=== PATIENT | male | born 1985 | race Caucasian/White ===

== ENCOUNTER 2024-04-23 16:14 | Emergency (ER) | payer BC ==
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
[2024-04-23 16:28] VITALS: TEMP 96.6
[2024-04-23 16:36] LABS: Absolute Neutrophil Ct (ANC) 3.88 x10^3/uL (1.78-5.38); BASOPHIL % 0.4 % (0.2-1.2); Basophil (Absolute #) 0.04 x10^3/uL (0.01-0.08); Eosinophil % 1.7 % (0.8-7.0); Eosinophil (Absolute #) 0.17 x10^3/uL (0.04-0.54); Hematocrit 41.1 % (40.1-51.0); Hemoglobin 13.8 g/dL (13.7-17.5); IMMATURE GRAN # 0.08 x10^3u/L (0.001-0.031); IMMATURE GRAN % 0.8 % (0.001-0.429); Lymphocyte (Absolute #) 4.93 x10^3/uL (1.32-3.57); Lymphocytes % 49.7 % (21.8-53.1); Mean Cell Volume 89.5 fL (79.0-92.2); Mean Corpuscular Hemoglobin 30.1 pg (25.7-32.2); Mean Corpuscular Hgb Concent. 33.6 g/dL (32.3-36.5); Mean Platelet Volume 9.9 fL (9.4-12.4); Monocyte (Absolute #) 0.81 x10^3/uL (0.30-0.82); Monocytes % 8.2 % (5.3-12.2); Neutrophil % 39.2 % (34.0-67.9); Platelet Count 311 x10^3/uL (163-337); Red Blood Count 4.59 x10^6/uL (4.63-6.08); Red Cell Distribution Width 12.5 % (11.6-14.4); White Blood Count 9.9 x10^3/uL (4.23-9.07)
[2024-04-23] MEDS ORDERED: SUBLIMAZE 100 MCG/2 ML ONE (16:48)
[2024-04-23 16:50] LABS: ALBUMIN 4.6 g/dL (3.5-5.0); ANION GAP 15.9 MEQ/L (5-15); BILIRUBIN,TOTAL 0.3 mg/dL (0.2-1.3); Calcium 9.3 mg/dL (8.4-10.2); Creatinine 1 0.95 mg/dL (0.66-1.25); EST GLOMERULAR FILTRATION RATE 104.4 ML/MIN; Total Protein 7.7 g/dL (6.3-8.2)
[2024-04-23] MEDS ORDERED: Propofol 1000 mg/100 ml Bottle 100 ML IV ONE (16:51)
[2024-04-23 16:52] LABS: INR 0.98 (0.8-3.0); PROTIME 10.7 SECONDS (9.4-12.5)
[2024-04-23] MEDS: Propofol 1000 mg/100 ml Bottle 100 ML IV PRN (16:57)
[2024-04-23 17:00] LABS: Potassium 2.8 mmol/L (3.5-5.1)
[2024-04-23] MEDS ORDERED: Zemuron 100 MG/10 ML ONE (17:00)
[2024-04-23] MEDS ORDERED: Ketamine HCl 50 MG/ML ONE (17:00)
[2024-04-23] MEDS ORDERED: CARDENE IV ONE (17:15)
[2024-04-23 17:20] LABS: ABO TYPING A; RH TYPING POSITIVE
[2024-04-23 17:21] LABS: Antibody Screen NEGATIVE (NEGATIVE)
[2024-04-23] MEDS ORDERED: Sodium Chloride 0.9% 250 ML 250 ML IV ONE (17:21)
[2024-04-23] MEDS: CARDENE*** 25 MG in Sodium Chloride 0.9% 250 ML 240 ML IV PRN (17:25)
[2024-04-23] MEDS ORDERED: FENTANYL 500 MCG/10 ML VIAL IV ONE ×2 (17:35→17:40)
[2024-04-23] MEDS ORDERED: Sodium Chloride 0.9% 150 ML 150 ML IV ONE ×2 (17:36→17:37)
[2024-04-23] MEDS: FENTANYL 500 MCG/10 ML VIAL 1,500 MCG in Sodium Chloride 0.9% 150 ML 120 ML IV PRN (17:41)
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
[2024-04-23 18:06] LABS: Appearance Clear (Clear); Bacteria None Seen /HPF (None Seen); Bilirubin Negative (Negative); Blood NHT (Negative); Epithelial Cells None Seen /HPF (None Seen); Glucose, Urine 250 mg/dL (Negative); Hyaline Casts NONE SEEN /LPF (0-2); Ketones Negative (Negative); Leukocyte Esterase Negative (Negative); Nitrite Negative (Negative); Protein,Urine Dip Negative (Negative); RBC 0-2 /HPF (0-5); Specific Gravity <=1.005 (1.005-1.030); Urobilinogen 0.2 mg/dL (0.2); WBC 0-2 /HPF (0-5)
[2024-04-23 18:14] LABS: ADD URINE CULTURE? ORDERED SEPARATELY (NO)
[2024-04-23 18:17] LABS: Amphetamine,Urine NEGATIVE (NEGATIVE); Barbiturate,Urine NEGATIVE (NEGATIVE); Cocaine,Urine NEGATIVE (NEGATIVE); Methadone,Urine NEGATIVE (NEGATIVE); Opiate,Urine NEGATIVE (NEGATIVE); PCP,Urine NEGATIVE (NEGATIVE); THC,Urine NEGATIVE (NEGATIVE)
[2024-04-23 19:01] VITALS: BP 175/77; PULSE 64; RESP 27
[2024-04-23 19:37] VITALS: O2SAT 96
--- NOTE | 2024-04-23 21:26 | XRAY ---
Indication: Endotracheal tube placement. Comparison: None Portable chest demonstrates endotracheal tube tip approximately 5.5 cm above stu. Lungs underinflated with minimal left costophrenic angle subsegmental atelectasis/scarring. Remaining heart, lungs, and bony thorax normal.
--- NOTE | 2024-04-23 21:28 | XRAY ---
Indication: OG tube placement. Comparison: Taken earlier in the day Portable chest demonstrates new OG tube traversing chest with tip coiled in stomach. Stable endotracheal tube tip 5.5 cm above stu. Lungs remain underinflated with worsening mild left base and new mild right base subsegmental atelectasis/scarring. Remaining heart and upper lungs are unremarkable.
[2024-04-26 20:12] LABS: Benzodiazepines Negative ng/mL (Cutoff=300)
== END 2024-04-23 19:06 | disposition short-term general hospital (02) ==
LOC: ED 16:14
DX: S06.4X1A Epidural hemorrhage with loss of consciousness of 30 minutes or less, initial encounter (principal); S06.5X1A Traumatic subdural hemorrhage with loss of consciousness of 30 minutes or less, initial encounter; S06.A0XA Traumatic brain compression without herniation, initial encounter; V86.09XA Driver of other special all-terrain or other off-road motor vehicle injured in traffic accident, initial encounter
CPT/HCPCS: 31500; 36000; 36415; 51702; 70450; 71045; 80053; 80307; 81001; 82077; 85025; 85610; 85730; 86850; 86900; 86901; 87086; 94002; 96365; 96367; 96374; 99285; J2704; J3010